=== PATIENT | female | born 1975 | race Caucasian/White ===

== ENCOUNTER 2019-07-10 19:51 | Observation (INO) ==
[2019-07-10 20:10] VITALS: BMI 24.5
[2019-07-10] MEDS ORDERED: ZOFRAN 4 MG/2 ML IVP STA (20:18)
[2019-07-10] MEDS ORDERED: SODIUM CHLORIDE 1,000 ML IV STA (20:18)
[2019-07-10] MEDS ORDERED: DILAUDID 1 MG/ML SYRINGE IVP STA (20:18)
--- NOTE | 2019-07-10 21:46 | CT ---
EXAM: CT of the abdomen and pelvis with and without contrast History: Left lower quadrant abdominal pain. Technique: Multiplanar CT images through the abdomen pelvis were obtained with and without the admin istration of IV contrast Findings: Lung bases are clear. No acute osseous abnormalities. No renal stones and no hydronephrosis. No gallstones identified by CT. No focal liver or splenic le sions. Pancreas is within normal limits. Adrenal glands are unremarkable. No renal masses. A few borderline dilated fluid-filled loops of small bowel but no specific evidence for bowel obstruction. Postsurgical changes are seen within the right lower quadrant of the abdomen. Bladder is not well d istended. No focal bladder wall thickening. There are prominent pelvic vessels and dilated left ova cal vein. Colonic diverticulosis. Inflammation of the distal descending colon with associated wall thickening and small amount of adjacent fluid. There is no free intraperitoneal air and no discrete abscess is seen. Impression: 1. Acute diverticulitis of the descending colon. 2. Prominent pelvic vessels and dilated left ovarian vein can be compatible with pelvic congestion s yndrome.
--- NOTE | 2019-07-10 22:04 | ED.PDOC ---
General ED Provider: Dr. VERONICA DIAZ Chief Complaint: Abdominal Pain Stated Complaint: penny been hurting Time Seen by Physician: 22:03 Mode of Arrival: Walk-In Information Source: Patient Nursing and Triage Documentation Reviewed and Agree: Yes Does patient meet sepsis criteria?: No System Inflammatory Response Syndrome: Not Applicable Sepsis Protocol: For patient's 13 years and over: Temp is 96.8 and below OR 101 and greater Pulse >90 BPM Resp >20/minute Acutely Altered Mental Status Are patient's symptoms suggestive of a new infection, such as: -Pneumonia -Skin, Soft Tissue -Endocarditis -UTI -Bone, Joint Infection -Implantable Device -Acute Abdominal Infection -Wound Infection -Meningitis -Blood Stream Catheter Infection -Unknown GI Complaint Exam Abdominal Pain Complaint/Exam Onset: Gradual Duration: 3 days Symptoms Are: Still present Timing: Constant Initial Severity: Mild Current Severity: Moderate Location of Pain: LLQ Character: Reports Dull and Aching Alleviating: Reports None Associated Signs and Symptoms: Reports Fever, Decreased appetite, Nausea and Diarrhea Patient Rh Status: Unknown Abdominal Findings: Present None Review of Systems Review Of Systems Constitutional: Reports No symptoms Eyes: Reports No symptoms Ears, Nose, Mouth, Throat: Reports No symptoms Respiratory: Reports No symptoms Cardiac: Reports No symptoms GI: Reports Abdominal pain, Diarrhea, Nausea and Poor appetite : Reports No symptoms Musculoskeletal: Reports No symptoms Skin: Reports No symptoms Neurological: Reports No symptoms Endocrine: Reports No symptoms Hematologic/Lymphatic: Reports No symptoms All Other Systems: Reviewed and Negative [facility] Family History Grandfather/Grandmother No problems noted. Female Reproductive History Menstrual Hx Hysterectomy: No Hx Tubal Ligation: No Physical Exam Physical Exam Appearance: Well-appearing Ill-appearing: Mild Pain Distress: Moderate Eyes: MILES, EOMI and Conjunctiva clear ENT: Ears normal Neck: Supple Respiratory: Airway patent Cardiovascular: RRR GI/: Soft, Bowel sounds normal and Tender Musculoskeletal: Normal strength Skin: Warm Neurological: Sensation intact Psychiatric: Affect appropriate and Mood appropriate Interpretation Radiology Interpretation Radiology Interpretation By: Radiologist Radiology Results: Positive Exam Interpreted: CT Scan Physician Notification Case Discussed Physician Notified: dr [email or web address] Time of Notification: 22:02 Critical Care Note Critical Care Note Total Time (mins): 15 Course Course Hematology/Chemistry: 07/10/19 20:30 07/10/19 20:30 Orders, Labs, Meds: Lab Review 07/10/19 07/10/19 07/10/19 20:30 20:30 20:30 WBC 14.95 H RBC 4.10 L Hgb 12.6 Hct 37.5 MCV 91.5 MCH 30.7 MCHC 33.6 RDW Coeff of Patsy 12.6 Plt Count 310 Immature Gran % (Auto) 0.5 Neut % (Auto) 83.0 Lymph % (Auto) 7.4 L [place] % (Auto) 7.3 Eos % (Auto) 1.5 Baso % (Auto) 0.3 Immature Gran # (Auto) 0.1 Neut # (Auto) 12.4 H Lymph # (Auto) 1.1 [place] # (Auto) 1.1 Eos # (Auto) 0.2 Baso # (Auto) 0.1 ESR 42 H Sodium 137.3 Potassium 3.76 Chloride 101.9 Carbon Dioxide 27.8 Anion Gap 11.36 BUN 12.9 Creatinine 0.64 Estimated GFR (MDRD) 101.00 BUN/Creatinine Ratio 20.15 Glucose 113.5 H Calcium 8.99 Total Bilirubin 0.43 AST 38.9 H ALT 32.1 Alkaline Phosphatase 67.9 Total Protein 7.57 Albumin 4.09 Globulin 3.48 Albumin/Globulin Ratio 1.17 Amylase 67.2 Lipase 28.4 Serum , Qual Negative Orders Category Date Time Status NPO REMINDER: IMAGING ONCE CARE 07/10/19 20:20 Completed ED IV/MEDIPORT/POWERPORT .ONCE EMERGENCY 07/10/19 20:18 Active AMYLASE Stat LAB 07/10/19 20:30 Completed CBC W/ AUTO DIFF Stat LAB 07/10/19 20:30 Completed COMPREHENSIVE METABOLIC PANEL Stat LAB 07/10/19 20:30 Completed ESR Stat LAB 07/10/19 20:30 Completed LIPASE Stat LAB 07/10/19 20:30 Completed SERUM Stat LAB 07/10/19 20:30 Completed URINALYSIS C & S IF INDICATED Stat LAB 07/10/19 21:50 Received 0.9 % Sodium Chloride [Saline Flush] MEDS 07/10/19 20:18 Active 1 syr IVF PRN PRN Hydromorphone HCl [Dilaudid 1 mg/ml Syringe] MEDS 07/10/19 20:18 Discontinued 1 mg IVP ONCE STA Ondansetron HCl/Pf [Zofran 4 mg/2 ml] MEDS 07/10/19 20:18 Discontinued 4 mg IVP ONCE STA Sodium Chloride 0.9% [Sodium Chloride] 1,000 ml MEDS 07/10/19 20:18 Active IV 100 mls/hr CT ABDOMEN/PELVIS W/WO CONTRAS Stat RADS 07/10/19 20:20 Completed Medications Generic Name Dose Route Start Last Admin Trade Name Freq PRN Reason Stop Dose Admin Sodium Chloride 1,000 mls @ 100 mls/hr 07/10/19 20:18 07/10/19 20:57 Sodium Chloride IV 07/11/19 06:17 100 mls/hr .Q10H STA Administration Sodium Chloride 1 syr 07/10/19 20:18 07/10/19 20:57 Saline Flush IVF 1 syr PRN PRN Administration To flush IV Discontinued Medications Generic Name Dose Route Start Last Admin Trade Name Freq PRN Reason Stop Dose Admin Hydromorphone HCl 1 mg 07/10/19 20:18 07/10/19 20:57 Dilaudid 1 Mg/Ml Syringe IVP 07/10/19 20:19 1 mg ONCE STA Administration Ondansetron HCl 4 mg 07/10/19 20:18 07/10/19 20:56 Zofran 4 Mg/2 Ml IVP 07/10/19 20:19 4 mg ONCE STA Administration Vital Signs: Temp Pulse Resp BP Pulse Ox 07/10/19 20:01 98.4 F 110 H 20 120/81 96 Discharge Plan Discharge Patient Disposition: PLACED OBSERVATION Discharge Problem: Diverticulitis Prescriptions: No Action No Reported Medications 0 Qty: 0 RF: 0 ED Provider: VERONICA DIAZ Condition: Good
[2019-07-10] MEDS ORDERED: ZOFRAN 4 MG/2 ML IVP PRN (22:10)
[2019-07-10] MEDS: DILAUDID 1 MG/ML SYRINGE IVP PRN (22:57)
[2019-07-10] MEDS: D5%-NS-KCL 20 MEQ/L IV SOL 1,000 ML IV SCH (22:57)
--- NOTE | 2019-07-10 23:11 | PCM ---
Chief Complaint Chief Complaint: Abdominal Pain LLQ 3 days. History of Present Illness History of Present Illness: 44 yr old CF presented to ED 07/10/[address] Gonzalez at 22:03. Patient presented as walk in w/ CC "Brooke been hurting in abdomen: Abdominal pain LLQ." Patient presented with BP stable at 120/81, pulse tachycardic at 110, RR 20, temp 98.4, O2 saturation 96%. She has had gradual onset of pain over last 72 hours, pain remained present in ED, constant pain increasing from mild to moderate over last 72 hours. Pain localized to LLQ, reported pain as dull/aching in nature. Nothing has alleviated the pain so far. She has reported fever, decreased intake for solids/liquids, reported Nausea, and Diarrhea. ROS in ED abd pain N/Diarrhea and poor appetite else negative. Ct scan was completed in the ED and reported Acute diverticulitis of the descending colon as well as "Prominent pelvic vessels and dilated left ovarian vein can be compatible with pelvic congestion syndrome." Labs were obtained in the ED and she was found to have WBC 14.95, hgb 12.6, plt 310, neutrophils 12.4%. ESR 42 and elevated. CMP reviewed and she had 137.3 sodium, 3.76 K+, 101.9 cl, 27.8 c02, 11.36 anion gap. Cr 0.64, glucose mildly elevated at 113.5, calcium normal 8.99. AST minimally elevated at 38.9, alt normal 31.1. test negative. Amylase negative at 67.2 and lipase negatve at 28.4. She was given dilaudid for pain 1mg IVP 20:18, zofran 4mg IVP and NS 100ml/hour. She was dx with acute diverticulitis and was admitted to med surg room 118. I was contacted at 22:02 and began admission process 23:00. ED note reviewed, imaging reviewed, labs reviewed. Patient declined influenza vaccine. She rated pain at 6/10 tight/radiating and sharp at times. Worse with meals. 1700 last meal and pain worsened, thus bringing her to the ED. She has history of appendectomy 2007, history of asthma. Tetanus up to date. She was seen personally in room 118. She is not currently working, no primary provider. She is currently single/boyfriend. No tobacco. She vapes intermittently. Sexually active. LMP 07/09/19. She takes no medications regularly. . She has children aged 20, 21, 24. She presented to ED tonight due to pain over last few days worsening. Pinch in the LLQ worsening ove rthe last few days. S he has used heating pad this evening, this did not work. Pain continued to intensify and she decided to go to ED via boyfriend. She noted she was going to come yesterday but she put it off and did not come in. She denies diarrhea to me on history. No emesis. She has some nausea earlier today but that has since resolved. Afebrile. No drug use. ETOH minimal lately. Social drinking on weekends. She denies blood in stool but then noted dark stools. I asked about peptobismol use and she noted it was used several times. Discussed use of this agent and discussed black stools with pepto. Mild pain at present rated at 5/10. She has never used this before. She noted that it has helped. She has never had colonoscopy historically. Again she denied diarrhea to me today. Pain is crampy, colicky, lower left sided, spreads up and toward right at times. Review of Systems Constitutional: weakness, fatigue and loss of appetite; No fever, chills and sweats Eyes: No blurred vision, double-vision, discharge, itching, pain, redness, photophobia and other Ears: No pain, bleeding, drainage, ringing, hearing loss and other Nose: No bleeding, congestion, discharge and other Throat: No pain, swelling, voice change and other Mouth: No bleeding, pain, swelling and other Respiratory: No cough, shortness of air, wheeze, hemoptysis, pain with breathing and other Cardiovascular: No chest pain, left arm pain, diaphoresis, PND, orthopnea, edema, palpitations, syncope and other Gastrointestinal: abdominal pain, nausea and melena; No vomiting, diarrhea, hematemesis, hematochezia, dysphagia and constipation Genitourinary: No dysuria, hematuria, frequency, incontinence, flank pain, vaginal discharge, abnormal bleeding, pelvic pain and other Last Menstrual Cycle: 07/09/19 Neurological: No headache, dizziness, seizure, numbness, weakness, speech difficulty, problems with walking, tremor, fainting and other Musculoskeletal: No pain, swelling in joints and other Skin: No rash, pruritus, lacerations, wounds, bruising and other Immunology: No hives, itching, frequent infections, difficulty healing and other Hematology: No easy bruising, easy bleeding, swollen glands and other Endocrine: No weight changes, cold intolerance, heat intolerance, excessive thirst, excessive hunger, polyuria and other Psychiatric: No depression, anxiety, sleeplessness, hopelessness, suicidal, hallucinations and other Habits: No tobacco use, substance use, alcohol use and other Past Medical History Past Medical History: Asthma/Appendectomy . Past Surgical History Past Surgical History: Appendectomy. Allergies Allergies Allergy/AdvReac Type Severity Reaction Status Date / Time No Known Allergies Allergy Verified 07/10/19 20:10 Medications Medications: Medications Generic Name Dose Route Start Last Admin Trade Name Freq PRN Reason Stop Dose Admin Enoxaparin Sodium 40 mg 07/11/19 09:00 Lovenox SUBCUT DAILY JO Hydromorphone HCl 1 mg 07/10/19 22:10 07/10/19 22:57 Dilaudid 1 Mg/Ml Syringe IVP 1 mg Q2HR PRN Administration Abdominal Pain Sodium Chloride 1,000 mls @ 100 mls/hr 07/10/19 20:18 07/10/19 20:57 Sodium Chloride IV 07/11/19 06:17 100 mls/hr .Q10H STA Administration Potassium Chloride/Dextrose/Sod Cl 1,000 mls @ 100 mls/hr 07/10/19 22:30 07/10/19 22:57 D5%-Ns-Kcl 20 Meq/L Iv Jackie IV 100 mls/hr .Q10H JO Administration Levofloxacin/Dextrose 500 mg in 100 mls @ 100 mls/hr 07/11/19 09:00 Levaquin 500 Mg/100 Ml D5w IV 07/14/19 08:59 DAILY JO Metronidazole 500 mg in 100 mls @ 100 mls/hr 07/11/19 05:00 Flagyl 500 Mg/100 Ml IV 07/14/19 04:59 Q8HR JO Ondansetron HCl 4 mg 07/10/19 22:10 Zofran 4 Mg/2 Ml IVP Q4HR PRN Nausea / Vomiting Sodium Chloride 1 syr 07/10/19 20:18 07/10/19 20:57 Saline Flush IVF 1 syr PRN PRN Administration To flush IV Family History Past Family History: Reviewed and updated within EMR Social History Past Social History: Lives with Boyfriend. Children out of the home. Body Composition Height: 5 ft 2 in Weight: 134 lb 2 oz Body Mass Index (BMI): 24.5 Physical Examination HEENT: Constitutional: Appearance-No acute distress, Consistent with stated age. Orientation- Oriented x 3, alert Build and Nutrition-[normal] General- Patient is pleasant and cooperative with the interview and exam. Skin: Tattoo low back and barbed wire right bicep. Star left lateral eye. Head: Head/Neck: Head- normocephalic and atraumatic. Neck- without visible/palpable lumps or pulsations. Palpation- No bony tenderness about head/neck along frontal, occipital, temporal, parietal, mastoid, jawline, zygoma, orbit or any other location. NO temporal artery tenderness. No TMJ tenderness. Neck Supple. Thyroid-No thyromegaly, no nodules Ears: ENMT: Pinna- normal without tenderness or erythema. External auditory canal Left- normal without erythema or discharge, no excessive cerumen. External auditory canal Right-normal without erythema or discharge, no excessive cerumen. TM left- Lopes/pearly, normal light reflex and anatomy TM Right- Lopes/pearly, normal light reflex and anatomy Hearing Assessment-normal to conversational speech. Nose and sinus- No sinus tenderness along frontal/maxillary region. External appearance normal and midline. Nares- bilateral quiet airflow, no discharge. Nasal mucosa- No bleeding noted and no ulcerations observed. [place], moist. Turbinates non boggy. Lips- normal color, moist without cracks/lesions Oral Cavity/Palate- hard/soft palate intact without lesions, oral mucosa pink and moist. Dentition assessed and discussed appropriate oral care. Tongue normal midline. Oropharynx- no pharyngeal erythema, Uvula midline. No post nasal drip. No exudate. Salivary glands- Non tender to palpation Eyes: PERRLA, EOMI, normal conjunctiva. NO e/o infection. Nose: Normal external appearance. No epistaxis. Normal septum. Throat: NOrmal palatal arch, no petechiae. Mouth: moist/pink. NO ulcers/lesions. Neurological: Neurological: General- Moves all 4 extremities symmetrically. Symmetrical face and body posture. Cranial nerves- individually evaluated II-XII and intact. PERRLA, Normal EOMI, visual/special senses appear intact, Face is symmetrical and normal sensation/movement, normal tongue, normal strength/posture of neck musculature. Reflexes- intact with DTR 2+ patellar, Achilles, bicep, brachial, tricep. Ankle clonus normal with 2 beats. Strength- 5/5 bilateral UE and LE. Soft touch- intact bilateral UE and LE. Temperature sensation- intact bilateral UE and LE. []Cerebellar testing-Rapid alternating movements intact. Neck: Supple, no LAD. Breast: Deferred Lungs: CHEST/LUNG: Inspection- symmetric chest wall no pectus deformity. Normal effort, no distress, no use of accessory muscles. Palpation- nontender sternum, ribline. No abnormal pulsations. Auscultation- Breath sounds normal throughout all lung marquez. Normal tracheal sounds, Normal bronchial sounds overlying sternum, Bronchovessicular sounds normal between scapulae posteriorly, Normal vessicular breath sounds heard throughout periphery. Lungs are clear today. Adventitious sounds- No wheezes, rales, rhonchi. Heart: CARDIOVASCULAR: Carotid artery- normal, no bruits or abnormal pulsations. Jugular vein- no pulsations. Palpation/Percussion- Normal PMI, no palpable thrill Auscultation- Regular rate and rhythm. No murmur noted in sitting, supine positions. Extremities- no digital clubbing, cyanosis, edema, increased warmth. Abdomen: ABDOMEN: Inspection- normal and no visible pulsations. Normal contour. Auscultation- Bowel sounds hyperactive, no abdominal bruits. Palpation/Percussion- soft, tender LLQ, no rebound tenderness, no rigidity (guarding), no jar tenderness, no masses. Liver-no hepatomegaly, Spleen no splenomegaly, Hernias- none. Rectal as listed. She had hyperactive bowel s ounds, not tinny, not high pitched. Negative rovsing, negative s/sx of hematoma. Upper Extremities: Generalized-No generalized swelling or edema of extremities, no digital clubbing or cyanosis, neurovascularly intact all four extremities. Upper extremity- Symmetrical posture. No visible deformity. Normal sensation along medial and lateral upper extremity proximally and distally. NO tenderness overlying shoulder, lateral/medial epicondyle. Swabber 5/5 and strength 5/5 bilateral UE. Elbow palpated, no tenderness overlying olecranon. Normal supi nation, pronation to active/passive ROM and to resisted rotation. Bicep insertion/tricep insertion appear normal without obvious pathology. Lower Extremities: Lower extremity- Hip: Not tender to palpation, no pain, no swelling, edema or erythema of surrounding tissue, normal strength and tone. Normal appearing hip ROM bilaterally without pain. Knee: Knee ROM normal. No tenderness overlying trochanters, no tenderness about patella, quad tendon, patellar tendon. No tenderness at tibial tuberosity. Ankle: normal ROM not tender to palpation along medial/lateral malleolus. Foot: Normal movement of toes, no tenderness bilateral feet/toes. Normal foot type. Back pain: No spinous process tenderness along C/T/L spine. Paraspinal tend erness present bilaterally along thoracic and lumbar region. Hip flexion 5/5 bilat, knee extension 5/5 bilat, knee flexion 5/5 bilat. Ankle dorsiflexion and plantar flexion 5/5 bilaterally. Hallux strength normal symmetrical, no atrophy. No ankle clonus. Normal reflexes, symmetrical. no foot drop. Normal sensation to light touch bilaterally. FADIR negative bilat, RONAK negative Rectal: Nurse Dorothy Present during entirety of exam. Rectal exam completed with patient in left lateral decubitus. No external hemorrhoids, no internal hemorrhoids, normal sphincter tone. Hemoccult ordered/completed. She did have a prominent anterior ridge at the posterior aspect of vagina which may have been an episiotomy tear at one point with some scarring. She noted fullness/pressure to examination. Pelvic: Deferred. External Genitalia: Posterior aspect of external vulva, labia majora/minora normal to visual inspection during rectal exam. Lab/Tests/Diagnostic Imaging Lab/Tests/Diagnostic Imaging: Laboratory Results - last 24 hr 07/10/19 07/10/19 07/10/19 20:30 20:30 20:30 WBC 14.95 H RBC 4.10 L Hgb 12.6 Hct 37.5 MCV 91.5 MCH 30.7 MCHC 33.6 RDW Coeff of Patsy 12.6 Plt Count 310 Immature Gran % (Auto) 0.5 Neut % (Auto) 83.0 Lymph % (Auto) 7.4 L Ralls % (Auto) 7.3 Eos % (Auto) 1.5 Baso % (Auto) 0.3 Immature Gran # (Auto) 0.1 Neut # (Auto) 12.4 H Lymph # (Auto) 1.1 Ralls # (Auto) 1.1 Eos # (Auto) 0.2 Baso # (Auto) 0.1 ESR 42 H Sodium 137.3 Potassium 3.76 Chloride 101.9 Carbon Dioxide 27.8 Anion Gap 11.36 BUN 12.9 Creatinine 0.64 Estimated GFR (MDRD) 101.00 BUN/Creatinine Ratio 20.15 Glucose 113.5 H Calcium 8.99 Total Bilirubin 0.43 AST 38.9 H ALT 32.1 Alkaline Phosphatase 67.9 Total Protein 7.57 Albumin 4.09 Globulin 3.48 Albumin/Globulin Ratio 1.17 Amylase 67.2 Lipase 28.4 Serum , Qual Negative Urine Color Urine Clarity Urine pH Ur Specific Enterprise Urine Protein Urine Glucose (UA) Urine Ketones Urine Blood Urine Nitrite Urine Bilirubin Urine Urobilinogen Ur Leukocyte Esterase Urine Microscopic RBC Ur Squamous Epith Cells 07/10/19 21:50 WBC RBC Hgb Hct MCV MCH MCHC RDW Coeff of Patsy Plt Count Immature Gran % (Auto) Neut % (Auto) Lymph % (Auto) Ralls % (Auto) Eos % (Auto) Baso % (Auto) Immature Gran # (Auto) Neut # (Auto) Lymph # (Auto) Ralls # (Auto) Eos # (Auto) Baso # (Auto) ESR Sodium Potassium Chloride Carbon Dioxide Anion Gap BUN Creatinine Estimated GFR (MDRD) BUN/Creatinine Ratio Glucose Calcium Total Bilirubin AST ALT Alkaline Phosphatase Total Protein Albumin Globulin Albumin/Globulin Ratio Amylase Lipase Serum , Qual Urine Color Yellow Urine Clarity Clear Urine pH 5.5 Ur Specific Enterprise <=1.005 Urine Protein 1+ Urine Glucose (UA) Negative Urine Ketones Negative Urine Blood Trace-intact Urine Nitrite Negative Urine Bilirubin Negative Urine Urobilinogen 0.2 Ur Leukocyte Esterase Negative Urine Microscopic RBC 0-2 Ur Squamous Epith Cells 0-2 CT Abdomen Pelvis W/ Contrast and W/O Contrast: Findings: Lung bases are clear. No acute osseous abnormalities. No renal stones and no hydronephrosis. No gallstones identified by CT. No focal liver or splenic lesions. Pancreas is within normal limits. Adrenal glands are unremarkable. No renal masses. A few borderline dilated fluid- filled loops of small bowel but no specific evidence for bowel obstruction. Postsurgical changes are seen within the right lower quadrant of the abdomen. Bladder is not well distended. No focal bladder wall thickening. There are prominent pelvic vessels and dilated left ovarian vein. Colonic diverticulosis. Inflammation of the distal descending colon with associated wall thickening and small amount of adjacent fluid. There is no free intraperitoneal air and no discrete abscess is seen. Impression: 1. Acute diverticulitis of the descending colon. 2. Prominent pelvic vessels and dilated left ovarian vein can be compatible with pelvic congestion syndrome. Assessment (1) Diverticulitis: Status: Acute Code(s): K57.92 - Diverticulitis of intestine, part unspecified, without perforation or abscess without bleeding SNOMED Code(s): 865520651 (2) SIRS (systemic inflammatory response syndrome): Status: Acute Code(s): R65.10 - Systemic inflammatory response syndrome (SIRS) of non-infectious origin without acute organ dysfunction SNOMED Code(s): 443676029 (3) Electronic cigarette use: Status: Acute Code(s): Z78.9 - Other specified health status SNOMED Code(s): 785183647 (4) Nausea: Status: Acute Code(s): R11.0 - Nausea SNOMED Code(s): 881710267 Plan Plan: 1. Diverticulitis: First event. LLQ pain ddx considered included diverticulitis, ovarian pathology, uterine pathology. She has had appendectomy in 2007. No fever, no diarrhea. She has used peptobismol, which can cause the stools to turn dark. We will use normal saline at 100ml/hour until she is able to tolerate clear liquids. will try clear liquid diet for lunch meal. Pain is present, we have discussed bowel rest and NPO for now. Reviewed labs, imaging, ED note summarized with her today. Plan of care d/w patient. No history of diverticulitis. She has no other symptoms today. - Admit Observation - CBC/CMP in am - Hemoccult on floor (done by Dr. Rich) - D5NS +20meq K+CL- @ 100 ml/hour - Levaquin 500mg IV daily started in ED, will increase to 750mg IV daily. - Flagyl 500mg q 8 hours IV - Dilaudid 1mg q 2 hours PRN pain - Zofran 4mg IV PRN Nausea - advance diet around 12pm meal to clear liquid diet. - Monitor pain. - 50 minutes spent on admission today. Expected length of stay 48 hours to 72 hours. 2. SIRS: Lactate and Procalcitonin negative. 3. Tobacco: Tobacco Cessation discussed today for 2 minutes. We reviewed lifestyle choices and discussed quitting. Ready to quit status discussed. The risks and hazards of continued tobacco abuse were discussed with the patient today and total tobacco cessation as recommended. It was clearly and unambiguously explained that continued tobacco usage will adversely affect overall morbidity and mortality of the patient. Patient was informed that tobacco use can lead to numerous cancers, worsening of cardiovascular and pulmonary systems and that lung damage is often permanent and irreversible. I advised the patient to inform me if any further assistance is requested, as we can offer counseling services, nicotine replacement inhaled, patch, lozenge, gum, or prescription medications to include Chantix or Wellbutrin for assistance. I will reassess the interest in tobacco cessation at the next and all subsequent visits. - Declined nicoderm. 4. Declined influenza/Pneumococcal Vaccine 5. Nausea: - Zofran 4mg IM PRN 6. Pain Response - Dilaudid 1mg IV q 2 hours PRN pain 7. DVT Prophylaxis: JUSTIN/SCD. HOld the Lovenox started in ED as patient reported dark stools and risks of rectal bleed are present. 8. Leukocytosis: ?Hemoconcentration vs infectious etiology. 9. Diet: Advance as listed. 10. Activity: Ad carissa. 11.. Disposition: Expected length of stay 48-72 hours. Reassess in am. >50 minutes but <70 minutes spent on admission today. Reviewed ED notes, looked at CT personally, reviewed scan. Reviewed labs with patient today, recent diet/travel/history reviewed/updated. Patient has no other issues today. [facility] Medical History Asthma (Acute) Family History Grandfather/Grandmother No problems noted. Social History Smokeless tobacco user: other Quit status: not considering quitting Female Reproductive History Menstrual Duration of menses: 3-5 days Date of last menstrual period: 07/09/19 control method: none Hx Hysterectomy: No Hx Tubal Ligation: No
[2019-07-11] MEDS ORDERED: LEVAQUIN 750 MG/150 ML D5W 750 MG/150 ML BAG IV SCH ×2 (02:00→04:05)
[2019-07-11] MEDS: DILAUDID 1 MG/ML SYRINGE IVP PRN ×4 (04:01→21:02)
[2019-07-11] MEDS: FLAGYL 500 MG/100 ML 500 MG/100 ML BAG IV SCH ×3 (06:15→21:02)
--- NOTE | 2019-07-11 07:43 | PCM.PROG ---
Time Seen by Provider: 07/10/19 22:00 Subjective: 44 yo CF HD #2 diverticulitis. She has minimal remote history, noted 3 days of LLQ abdominal pain presented to ED and now has CT confirmed LLQ descending diverticulitis. She was started on levaquin/flagyl. Today is Abx day #2. I increased levaquin from 500 to 750mg daily, will continue flagyl 500 IV q 8. She is currently NPO this am. We will consider advancing diet at lunch to clear, then advance diet later today as tolerated. Last BM yesterday. Nursing narratives reviewed. Hemoccult pending. I have stopped her lovenox and changed her to JUSTIN/SCD. These are not currently on her legs. I have asked nursing to place these this am. She noted pain this am 12/02. Dilaudid 1q2PRN ordered. ZOfran 4mg IV q 6-8 hours prn. Vitals overnight reviewed HR 93-110, Temp 98-98.4, bp 98/61, 109/68, rr 14-18, o2 98-100%. She has had 2Voids unmeasured. No BM since yesterday. AM labs showed WBC down from 14.95 to 12.71, hgb down from 12.6 to 11.5 and plt down from 310 to 279 suggestive of dilutional effect. CMP 136.9 sodium, K+ 3.85, CL 104.4, Cr 0.49, glucose 108.9 and calcium 8.58. She was seen this am at 7:15 and we discussed day/plan of care. She had no questions, no new symptoms. Discussed labs, changes and discussed that we would check back in on her later this pm. She does feel better. Back pain mildly 2/10 from laying supine more than normal. No other c/o. REVIEW OF SYMPTOMS: (Positives bolded) General: weight loss, fever, chills, night sweats, fatigue, appetite loss HEENT: blurry vision, eye pain, eye discharge, dry eyes, decreased vision, sore throat tinnitus, bloody nose, hearin gloss, sinus pain/pressure, ear pain/pressure. Respiratory: shortness of breath, cough, hemoptysis, wheezing, pleurisy, Cardiovascular: chest pain, PND, palpitation, edema, orthopnea, syncope, swelling of extremities Gastro: Nausea, vomiting, diarrhea, hematemesis, abdominal pain, constipation Genito: hematuria, dysuria, glycosuria, hesitancy, frequency, incontinence [place]: Arthralgia, myalgia, muscle weakness, joint swelling, NSAID use Skin: rash, pruritis, sores, nail changes, skin thickening, change in wart/mole, itching, rash, new lesions, pruritus, nail changes Neuro: Migraine, numbness, ataxia, tremor, vertigo, weakness, memory loss, Irritability, dizziness Endocrine: excessive thirst, polyuria, cold intolerance, heat intolerance, goiter Psychiatric: depression, anxiety, anti-depressants, alcohol abuse, drug abuse, insomnia, change in sleep pattern and mood changes Heme/lymph: easy bruising, bleeding gums, blood clots, swollen glands, lymphedema, Allergic/immune: allergic rhinitis, hay fever, asthma, hives Objective: Vital Signs - 24 hr 07/10/19 20:01 07/10/19 22:45 07/11/19 01:58 Temperature 98.4 F 98 F 98.0 F Pulse Rate 110 H 93 H 95 H Pulse Rate [Apical] 93 H Respiratory Rate 20 18 14 Blood Pressure 120/81 98/61 O2 Sat by Pulse Oximetry 96 100 98 07/11/19 05:56 Temperature 98.3 F Pulse Rate 102 H Pulse Rate [Apical] Respiratory Rate 16 Blood Pressure 109/68 O2 Sat by Pulse Oximetry 98 Constitutional: Appearance-No acute distress, Consistent with stated age. Orientation- Oriented x 3, alert General- Patient is pleasant and cooperative with the interview and exam. NO JUSTIN/SCD in place. I have requested these to be added this am. Integumentary: General-No rashes, ulcers or lesions. Palpation- Normal skin moisture/turgor. Skin is warm to touch, appropriate. Capillary refill is normal bilateral Upper and lower extremity. Head/Neck: Head- normocephalic and atraumatic. Neck- without visible/palpable lumps or pulsations. Palpation- No bony tenderness about head/neck along frontal, occipital, temporal, parietal, mastoid, jawline, zygoma, orbit or any other location. NO temporal artery tenderness. No TMJ tenderness. Neck Supple. Thyroid-No thyromegaly, no nodules ENMT: Nose and sinus- No sinus tenderness along frontal/maxillary region. External appearance normal and midline. Nares- bilateral quiet airflow, no discharge. Nasal mucosa- No bleeding noted and no ulcerations observed. [place], moist. Turbinates non boggy. Lips- normal color, moist without cracks/lesions Or al Cavity/Palate- hard/soft palate intact without lesions, oral mucosa pink and moist. Oropharynx- no pharyngeal erythema, Uvula midline. No post nasal drip. No exudate. Salivary glands- Non tender to palpation CHEST/LUNG: Inspection- symmetric chest wall no pectus deformity. Normal effort, no distress, no use of accessory muscles. Palpation- nontender sternum, ribline. No abnormal pulsations. Auscultation- Breath sounds normal throughout all lung marquez. Normal tracheal sounds, Normal bronchial sounds overlying sternum, Bronchovessicular sounds normal between scapulae posteriorly, Normal v essicular breath sounds heard throughout periphery. Lungs are clear today. Adventitious sounds- No wheezes, rales, rhonchi. CARDIOVASCULAR: Carotid artery- normal, no bruits or abnormal pulsations. Jugular vein- no pulsations. Palpation/Percussion- Normal PMI, no palpable thrill Auscultation- Regular rate and rhythm. No murmur noted in sitting, supine positions. Extremities- no digital clubbing, cyanosis, edema, increased warmth. ABDOMEN: Inspection- normal and no visible pulsations. Normal contour. Auscultation- Bowel sounds normal, no abdominal bruits. Palpation/Percussion- soft, tender LLQ, no rebound tenderness, no rigidity (guarding), no jar tenderness, no masses. Peripheral Vascular: Upper extremity Left- Normal temperature with pink nailbeds and no ulcerations. Upper extremity Right- Normal temperature with pink nailbeds and no ulcerations. Lower extremity- Normal temperature with pink nailbeds and no ulcerations. DP pulses 2+ bilaterally. Pedal hair intact. Normal capillary refill. Edema- No edema. Musculoskeletal: Generalized-No generalized swelling or edema of extremities, no digital clubbing or cyanosis, neurovascularly intact all four extremities. NO calf tenderness. Neurological: General- Moves all 4 extremities symmetrically. Symmetrical face and body posture. Cranial nerves- individually evaluated II-XII and intact. PERRLA, Normal EOMI, visual/special senses appear intact, Face is symmetrical and normal sensation/movement, normal tongue, normal strength/posture of neck musculature. Neuropsych: Oriented- Person, place, time. (AAOx3), Mood/affect- normal and congruent. Able to articulate well. Speech-Normal speech, normal rate, normal tone, normal use of language, volume and coherence. Thought content- normal with ability to perform basic computations and apply abstract thought/reason. Associations- intact, no SI/HI, no hallucinations, delusions, obsessions. Judgment/insight- Appropriate. Memory-Recall intact, remote and recent memory intact. Knowledge- Age appropriate fund of knowledge, concentration and attention span normal. Lymphatic: Head/Neck- normal size and non tender to palpation. Axillary- normal size and non tender to palpation. Femoral and Inguinal- normal size and non tender to palpation. (1) Diverticulitis: Status: Acute Code(s): K57.92 - Diverticulitis of intestine, part unspecified, without perforation or abscess without bleeding SNOMED Code(s): 903255125 (2) SIRS (systemic inflammatory response syndrome): Status: Acute Code(s): R65.10 - Systemic inflammatory response syndrome (SIRS) of non-infectious origin without acute organ dysfunction SNOMED Code(s): 658106601 (3) Electronic cigarette use: Status: Acute Code(s): Z78.9 - Other specified health status SNOMED Code(s): 545133763 (4) Nausea: Status: Acute Code(s): R11.0 - Nausea SNOMED Code(s): 958371053 (5) Leukocytosis: Status: Acute Code(s): D72.829 - Elevated white blood cell count, unspecified SNOMED Code(s): 051912091 Plan: 1. Diverticulitis: Labs this am stable, vitals stable. LLQ pain is easing but still present. This is her first diverticular event. Abx day #2 Levaquin 750mg IV and Flagyl 500 mg q 8 hours IV. She will remain NPO this am. We will advance meal at lunch with liquids and then re-evaluate this pm. Fluids running at 100ml/hour. She has mild dilutional effect to CBC. Otherwise she is improving. - Admit Observation to continue - CBC/CMP q am - Hemoccult pending. (stopped lovenox and using JUSTIN/SCD) - D5/Normal saline +20 Kcl @ 100 ml/hour - Levaquin 750mg IV daily. Day 2 - Flagyl 500mg q 8 hours IV Day 09/01 - Dilaudid 1mg q 2 hours PRN pain - Zofran 4mg IV PRN Nausea - advance diet around 12pm meal to clear liquid diet. - Monitor pain. - 25 minutes spent with patient this am. Expected length of stay another 24 hours to 48 hours. - 10 minutes spent with patient 12 pm - 10 minutes spent with patient 5:30 pm. 2. SIRS: Lactate and Procalcitonin negative. 3. Tobacco: Again reviewed cessation today. Tobacco Cessation discussed today for 2 minutes. We reviewed lifestyle choices and discussed quitting. Ready to quit status discussed. The risks and hazards of continued tobacco abuse were discussed with the patient today and total tobacco cessation as recommended. It was clearly and unambiguously explained that continued tobacco usage will adversely affect overall morbidity and mortality of the patient. Patient was informed that tobacco use can lead to numerous cancers, worsening of cardiovascular and pulmonary systems and that lung damage is often permanent and irreversible. I advised the patient to inform me if any further assistance is requested, as we can offer counseling services, nicotine replacement inhaled, patch, lozenge, gum, or prescription medications to include Chantix or Wellbutrin for assistance. I will reassess the interest in tobacco cessation at the next and all subsequent visits. - Declined nicoderm. - Instructed smoke free campus, no vaping. 4. Declined influenza/Pneumococcal Vaccines 5. Nausea: Stable. - Zofran 4mg IM PRN 6. Pain Response: Improving/stable. - Dilaudid 1mg IV q 2 hours PRN pain 7. DVT Prophylaxis: JUSTIN/SCD. Not currently on legs. Discussed need to apply these. Nurse added on rounds. Continue to hold the Lovenox that was started in ED as patient reported dark stools and risks of rectal bleed are present. 8. Activity: Up ad carissa. 9. Diet: Currently NPO. Advance diet with meal at 12pm. D/C the fluids when tolerating PO. 10. Disposition: Hospital Day 2. Expected length of stay total 48-72 hours, with 24-48 hours likely remaining for this hospital stay. Reassessed today at 12pm and again 5:15 pm. 35 minutes spent with patient total today.
[2019-07-11] MEDS ORDERED: LEVAQUIN 500 MG/100 ML D5W 500 MG/100 ML BAG IV SCH (09:00)
[2019-07-11] MEDS ORDERED: LOVENOX SUBCUT SCH (09:00)
[2019-07-11] MEDS: D5%-NS-KCL 20 MEQ/L IV SOL 1,000 ML IV SCH ×3 (10:37→21:08)
[2019-07-11] MEDS: TYLENOL PO PRN (17:21)
[2019-07-12 05:02] VITALS: BP 103/71; TEMP 97.9
[2019-07-12] MEDS: FLAGYL 500 MG/100 ML 500 MG/100 ML BAG IV SCH (05:26)
[2019-07-12] MEDS: DILAUDID 1 MG/ML SYRINGE IVP PRN (05:29)
[2019-07-12] MEDS: D5%-NS-KCL 20 MEQ/L IV SOL 1,000 ML IV SCH (08:12)
[2019-07-12] MEDS: TYLENOL PO PRN (08:21)
[2019-07-12] MEDS ORDERED: LEVAQUIN 750 MG/150 ML D5W 750 MG/150 ML BAG IV SCH (09:00)
--- NOTE | 2019-07-20 14:47 | PCM.DC ---
Final Diagnosis: 1. Diverticulitis 2. Hypokalemia (Resolved) 3. Tobacco use via Vaping 4. Leukocytosis (RESOLVED) 5. Anemia (Chronic suspected) Reason for Hospitalization: 1. Acute diverticulitis w/ LLQ abdominal pain of 2-3 days. 2. Tobacco use via vaping. Prognosis at Discharge: Improved. Pain reduced to 50%. Tolerating oral liquids. Will provide 7 days of oral antibiotics. Will provide 5 days of pain medications (OPIATE). R/B/A to this d/w patient today. NUTRITION INSTRUCTOR evaluated. NO red flags. Medications at Discharge: Ambulatory Orders Medication Instructions Recorded 1 [No Reported Medications] 07/10/19 ciprofloxacin HCl 500 mg PO BID 7 Days #14 tab 07/12/19 hydrocodone-acetaminophen 0.5 - 1 tab PO BID PRN 5 Days #10 07/12/19 tab metronidazole 500 mg PO Q8H 7 Days #21 tab 07/12/19 ondansetron 4 mg PO Q8H 5 Days #15 tab 07/12/19 Lab/Diagnostics: Laboratory Tests 07/10/19 07/10/19 07/10/19 20:30 20:30 20:30 WBC 14.95 H RBC 4.10 L Hgb 12.6 Hct 37.5 MCV 91.5 MCH 30.7 MCHC 33.6 RDW Coeff of Patsy 12.6 Plt Count 310 Immature Gran % (Auto) 0.5 Neut % (Auto) 83.0 Lymph % (Auto) 7.4 L [place] % (Auto) 7.3 Eos % (Auto) 1.5 Baso % (Auto) 0.3 Immature Gran # (Auto) 0.1 Neut # (Auto) 12.4 H Lymph # (Auto) 1.1 [place] # (Auto) 1.1 Eos # (Auto) 0.2 Baso # (Auto) 0.1 ESR 42 H Sodium 137.3 Potassium 3.76 Chloride 101.9 Carbon Dioxide 27.8 Anion Gap 11.36 BUN 12.9 Creatinine 0.64 Estimated GFR (MDRD) 101.00 BUN/Creatinine Ratio 20.15 Glucose 113.5 H Calcium 8.99 Total Bilirubin 0.43 AST 38.9 H ALT 32.1 Alkaline Phosphatase 67.9 Total Protein 7.57 Albumin 4.09 Globulin 3.48 Albumin/Globulin Ratio 1.17 Amylase 67.2 Lipase 28.4 Serum , Qual Negative Urine Color Urine Clarity Urine pH Ur Specific [place] Urine Protein Urine Glucose (UA) Urine Ketones Urine Blood Urine Nitrite Urine Bilirubin Urine Urobilinogen Ur Leukocyte Esterase Urine Microscopic RBC Ur Squamous Epith Cells Stl Occult Blood (IFOB) Stool Occult Blood #2 Stool Occult Blood #3 07/10/19 07/11/19 07/11/19 21:50 01:02 04:53 WBC 12.71 H RBC 3.81 L Hgb 11.5 L Hct 35.1 L MCV 92.1 MCH 30.2 MCHC 32.8 RDW Coeff of Patsy 12.7 Plt Count 279 Immature Gran % (Auto) 0.4 Neut % (Auto) 82.1 Lymph % (Auto) 8.9 L [place] % (Auto) 6.1 Eos % (Auto) 2.2 Baso % (Auto) 0.3 Immature Gran # (Auto) 0.1 Neut # (Auto) 10.4 H Lymph # (Auto) 1.1 [place] # (Auto) 0.8 Eos # (Auto) 0.3 Baso # (Auto) 0.0 ESR Sodium Potassium Chloride Carbon Dioxide Anion Gap BUN Creatinine Estimated GFR (MDRD) BUN/Creatinine Ratio Glucose Calcium Total Bilirubin AST ALT Alkaline Phosphatase Total Protein Albumin Globulin Albumin/Globulin Ratio Amylase Lipase Serum , Qual Urine Color Yellow Urine Clarity Clear Urine pH 5.5 Ur Specific [place] <=1.005 Urine Protein 1+ Urine Glucose (UA) Negative Urine Ketones Negative Urine Blood Trace-intact Urine Nitrite Negative Urine Bilirubin Negative Urine Urobilinogen 0.2 Ur Leukocyte Esterase Negative Urine Microscopic RBC 0-2 Ur Squamous Epith Cells 0-2 Stl Occult Blood (IFOB) Negative Stool Occult Blood #2 No specimen received Stool Occult Blood #3 No specimen received 07/11/19 07/12/19 07/12/19 04:53 04:05 04:05 WBC 6.74 D RBC 3.57 L Hgb 10.9 L Hct 33.2 L MCV 93.0 MCH 30.5 MCHC 32.8 RDW Coeff of Patsy 12.6 Plt Count 296 Immature Gran % (Auto) 0.1 Neut % (Auto) 64.3 Lymph % (Auto) 20.8 [place] % (Auto) 8.3 Eos % (Auto) 6.1 Baso % (Auto) 0.4 Immature Gran # (Auto) 0.0 Neut # (Auto) 4.3 Lymph # (Auto) 1.4 [place] # (Auto) 0.6 Eos # (Auto) 0.4 Baso # (Auto) 0.0 ESR Sodium 136.9 139.0 Potassium 3.85 4.20 Chloride 104.4 106.1 Carbon Dioxide 26.6 29.2 Anion Gap 9.75 7.90 BUN 9.2 5.2 L Creatinine 0.49 L 0.51 L Estimated GFR (MDRD) 138.00 132.00 BUN/Creatinine Ratio 18.77 10.19 Glucose 108.9 H 101.8 Calcium 8.58 8.83 Total Bilirubin 0.37 0.40 AST 26.3 20.7 ALT 26.5 20.7 Alkaline Phosphatase 62.3 48.5 Total Protein 6.79 6.45 Albumin 3.54 3.32 L Globulin 3.25 3.13 Albumin/Globulin Ratio 1.08 1.06 Amylase Lipase Serum , Qual Urine Color Urine Clarity Urine pH Ur Specific [place] Urine Protein Urine Glucose (UA) Urine Ketones Urine Blood Urine Nitrite Urine Bilirubin Urine Urobilinogen Ur Leukocyte Esterase Urine Microscopic RBC Ur Squamous Epith Cells Stl Occult Blood (IFOB) Stool Occult Blood #2 Stool Occult Blood #3 CT ABD Pelvis w/ Contrast Impression: 1. Acute diverticulitis of the descending colon. 2. Prominent pelvic vessels and dilated left ovarian vein can be compatible with pelvic congestion syndrome. Education Provided to Patient and Family: 1. Diverticulitis. 2. We discussed opiates as a form of pain medication to act as an adjunct to Tylenol, NSAIDS, steroids, topical rubs such as icyhot, bengay, biofreeze, aspercreme, cool/warm compresses, stretching/exercising etc. Opiates are not meant to eliminate pain but rather are designed to facilitate function and improve ADL. We discussed ADL today, discussed goals of therapy. We talked specifically about R/B/A to opiates, to overuse of opiates and dangers of using opiates even at recommended levels. NUTRITION INSTRUCTOR evaluated. SHe is aware that this is a one time temporary rx for the acute abdominal pain dx. 3 R/B/A to opiates d/w patient. Follow-ups: F/U with me in office in 5-7 days. Hospital Course: 44 yr old CF HD #3 admitted for LLQ pain c/w Diverticulitis based on imaging/presentation. Initially she had SIRS criteria, lactic acid and procalc were negative. She had leukocytosis that has resolved with fluids/abx. She was staretd on levaquin 500q 24 /Flagyl 500 q 8 in ED, I increased this to levaquin 750/flagyl 500 with same frequency. She was NPO up until 12 pm yesterday. Tolerated clears 12pm throughout rest of afternoon. We discussed several times yesterday about discharge today. Pain improved overnight. Still using pain meds and we will d/c with these today. She had normal vitals at discharge pulse 80, rr 16, temp 97.0, o2 99% and pain was 2/10 this am in LLQ. She was started on lovenox in ED but noted dark stools (likely peptobismol based on history). Thus, I d/c the lovenox and used JUSTIN/SCD for prophylaxis during hospital stay. She was up ad carissa. She had good urine output last 24 w/ >2.3ml/kg/hour output over last three 8 hour shifts. Hemoccult returned negative. We discussed CT results, lab results. Discussed diet. Discussed at this time there are no dietary limitations. Consider no dairy x 1 week. Limit as much as possible due to acute illlness/GI issues and concern for temporary lactose intolerance. We discussed her vaping. SHe is not interested in cessation at this time. Declined patches during hospital stay. Potassium was low normal in hospital/ED and this was controlled utilzing D5NS+20meq KCL during the stay. She continued to improve over the last 48 hours unto plan for d/c this am. She is ready to go home. Am labs showed WBC now at 6.74 and normalized, hgb 10.9 and low but normocytic. She has plt this am of 296 up from yesterday. She had e/o diluational effect labs yesterday but with increase in plt likely this is a real value at present. CMP this am was normalized. Sodium 139, K+ 4.2, cl 106.1. Cr 0.51, glucose 101.8 and calcium 8.83. Pain as noted above was better. She has used JUSTIN/SCD. She is tolerating liquids, vitals are normal/stable, afeberile and she is ready to go home. She has reached maximal benefit from hospitalization and her health has been maximized. We will plan d/c after breakfast. F/U with me in next 5-7 days for OV as she has no PCP. Day of D/C Examination: Vital Signs - 24 hr 07/11/19 10:00 07/11/19 14:00 07/11/19 18:00 Temperature 98.5 F 98.1 F 98.2 F Pulse Rate 91 H 87 96 H Respiratory Rate 18 18 18 Blood Pressure 96/60 100/65 112/74 O2 Sat by Pulse Oximetry 100 99 100 07/11/19 22:00 07/12/19 05:02 Temperature 97.7 F 97.9 F Pulse Rate 86 80 Respiratory Rate 18 16 Blood Pressure 98/61 103/71 O2 Sat by Pulse Oximetry 99 99 Constitutional: Appearance-No acute distress, Consistent with stated age. Orientation- Oriented x 3, alert General- Patient is pleasant and cooperative with the interview and exam. JUSTIN/SCD in place. NO changes from exam yesterday. Integumentary: General-No rashes, ulcers or lesions. Palpation- Normal skin moisture/turgor. Skin is warm to touch, appropriate. Capillary refill is normal bilateral Upper and lower extremity. Head/Neck: Head- normocephalic and atraumatic. Neck- without visible/palpable lumps or pulsations. Palpation- No bony tenderness about head/neck along frontal, occipital, temporal, parietal, mastoid, jawline, zygoma, orbit or any other location. NO temporal artery tenderness. No TMJ tenderness. Neck Supple. Thyroid-No thyromegaly, no nodules ENMT: Nose and sinus- No sinus tenderness along frontal/maxillary region. External appearance normal and midline. Nares- bilateral quiet airflow, no discharge. Nasal mucosa- No bleeding noted and no ulcerations observed. [place], moist. Turbinates non boggy. Lips- normal color, moist without cracks/lesions Oral Cavity/Palate- hard/soft palate intact without lesions, oral mucosa pink and moist. Oropharynx- no pharyngeal erythema, Uvula midline. No post nasal drip. No exudate. Salivary glands- Non tender to palpation CHEST/LUNG: Inspection- symmetric chest wall no pectus deformity. Normal effort, no distress, no use of accessory muscles. Palpation- nontender sternum, ribline. No abnormal pulsations. Auscultation- Breath sounds normal throughout all lung marquez. Normal tracheal sounds, Normal bronchial sounds overlying sternum, Bronchovessicular sounds normal between scapulae posteriorly, Normal vessicular breath sounds heard throughout periphery. Lungs are clear today. Adventitious sounds- No wheezes, rales, rhonchi. CARDIOVASCULAR: Carotid artery- normal, no bruits or abnormal pulsations. Jugular vein- no pulsations. Palpation/Percussion- Normal PMI, no palpable thrill Auscultation- Regular rate and rhythm. No murmur noted in sitting, supine positions. Extremities- no digital clubbing, cyanosis, edema, increased warmth. ABDOMEN: Inspection- normal and no visible pulsations. Normal contour. Auscultation- Bowel sounds normal, no abdominal bruits. Palpation/Percussion- soft, tender LLQ, no rebound tenderness, no rigidity (guarding), no jar tend erness, no masses. Peripheral Vascular: Upper extremity Left- Normal temperature with pink nailbeds and no ulcerations. Upper extremity Right- Normal temperature with pink nailbeds and no ulcerations. Lower extremity- Normal temperature with pink nailbeds and no ulcerations. DP pulses 2+ bilaterally. Pedal hair intact. Normal capillary refill. Edema- No edema. Musculoskeletal: Generalized-No generalized swelling or edema of extremities, no digital clubbing or cyanosis, neurovascularly intact all four extremities. NO calf tenderness. Neuropsych: Oriented- Person, place, time. (AAOx3), Mood/affect- normal and congruent. Able to articulate well. Speech-Normal speech, normal rate, normal tone, normal use of language, volume and coherence. Lymphatic: Head/Neck- normal size and non tender to palpation. Axillary- normal size and non tender to palpation. Femoral and Inguinal- normal size and non tender to palpation. Plan: 1. D/C Home today. - Improved pain - Tolerating PO liquids 2. New medications: - Cipro 500mg 1 by mouth 2x daily x 7 days - Flagyl 500mg 1 by mouth 3x daily x 7 days ( DO NOT DRINK ALCOHOL WHILE ON THIS) - [place] 7.5/325 1/2-1 by mouth 2x daily ( DO NOT DRIVE ON THIS) 3. F/U in office 1 week with me 4. Tobacco cessation encouraged. 5. Consider f/u for anemia >30 minutes spent today on d/c of patient, not including documentation. Reviewed ON nursing information, d/w am nurse khalif. D/w case management and reviewed the above with the patient (vitals, exam findings, new labs). She will be d/c home this am. Call/return to office if any new sx/changes. Return to ED for acute worsening.
== END 2019-07-12 09:53 | disposition home or self-care (01) ==
LOC: MEDSURG B 19:59 → ED 19:59 → MEDSURG B 22:40
PROVIDERS: ADMIT Family Medicine; ATTEND Family Medicine